=== PATIENT | female | born 1970 | race Caucasian/White ===

== ENCOUNTER 2019-11-30 15:19 | Emergency (ER) | payer OTHER ==
[~2019-11-30] VITALS: Ht 160 cm; Wt 60.3 kg
--- NOTE | ~2019-11-30 | EKG ---
[facility] [place] [address] ELECTROCARDIOGRAM REPORT Name: DANIELLE OCAMPO Room #: PRE [facility].#: [id number] Admission: Attend Phys: Discharge: Date of : 72 Report #: [id number] THIS REPORT FOR: cc: JANICE REMY Physician not on staff Rosaura Kaplan MD ~ THIS REPORT FOR: //name// [facility] ED Test Date: 2019-11-30 Test Time: 15:23:06 Pat Name: DANIELLE OCAMPO Department: Room: Gender: F [employer]: sergio : 1970 Requested By: Hao Pearl Order Number: [id number] MD: Measurements Intervals [place] Rate: 81 P: -77 WI: 107 QRS: 18 QRSD: 95 T: 41 QT: 368 QTc: 428 Interpretive Statements Sinus or ectopic atrial rhythm Short WI interval Compared to ECG 05/16/1999 11:59:26 Ectopic atrial rhythm now present Short WI interval now present Sinus rhythm no longer present [email or web address] By: 1523 1523 Epiphany EpiphanyMD /EPI
--- NOTE | ~2019-11-30 | EMS ---
[place] [address] EMS Patient Care Report Name: DANIELLE OCAMPO Room #: PRE [facility]..#: [id number] Admission: Attend Phys: Discharge: Date of : 72 Report #: [id number] THIS REPORT FOR: //name// Report Transmitted: 11/30/2019 14:52 EMS Care Summary [place], [place]/[facility] Incident [id number] @ 11/30/2019 14:40 Incident Location [address] [place] [address] Patient DANIELLE OCAMPO Female, 49 Years 1970 Patient Address [address] [place] [address] Patient History Hypothyroidism, Patient Allergies No known allergies, Patient Medications Levothyroxine, Chief Complaint chest pain Disposition Transported No Lights/[place] Dispatch Reason Chest Pain (Non-Traumatic) Transported To [facility] Narrative 49 y/o female with chest pain Upon arrival the pt was at the front door of the residence. She is awake conscious A&O x 4 with a GCS of 15. She has a patent airway, breathing is [address] [address] EMS Patient Care Report Name: DANIELLE OCAMPO Room #: [facility].#: [id number] Admission: Attend Phys: Discharge: Date of : 72 Report #: [id number] normal, and has a strong reg radial pulse. The pt appears to be in distress. She is c/o sudden onset of substernal chest pain while watching a movie she describes the pain as a substernal 71/0 pressure that radiates to stomach and back. The pt states she got up to walk around and chest pain got worse and called 911. The pt ambulated to the ambulance entered the side door, sat on the cot, secured to the cot, VS established. ECG SR, 12 lead SR with no st elevation noted on 12 lead, a 20 g lock was placed in LAC, D-101, pt was given ASA 324 mg chewable, nitro x 2 sublingual. Pain was reduced from a 7/10 crushing pain to a manageable 3/10 pressure. The pt VS were monitored and a second 12 lead was obtained during transport with no changes. The pt was taken to room 4 where she ambulated to her bed, report was given and EMS returned to service. Initial Vitals @15:04P: 77,R: 26,BP: 134/82,CO: 0,SpO2: 93, @14:58P: 75,R: 18,SpO2: 98, @14:53P: 141,R: 34,CO: 1,SpO2: 98, @15:09R: 22,SpO2: 96,[place] Suspected: false @15:00P: 75,R: 33,SpO2: 98, @15:05P: 78,R: 26,SpO2: 95, @14:50P: 90,R: 16,BP: 159/106,Pain: 7/10,GCS: 15,SpO2: 95,Revised Trauma: 12, @14:56P: 78,R: 33, @14:53P: 79,R: 13,SpO2: 100, @15:09P: 83,R: 37,SpO2: 97, @14:59P: 76,R: 21,BP: 150/90,CO: 2,SpO2: 99, @15:09P: 79,R: 16,BP: 125/80,Pain: 3/10,GCS: 15,Glucose: 101,SpO2: 95,Revised Trauma: 12, @15:06P: 77,R: 44,SpO2: 94, @14:55P: 76,R: 18,SpO2: 99,[place] Suspected: false Assessments @15:01MENTAL:Person Oriented,Time Oriented,Place Oriented,Event Oriented,SKIN:HEENT:Head/Face: No Abnormalities,Neck/Airway: No Abnormalities,LUNG SOUNDS:General: No Abnormalities,Left Upper: No Abnormalities,ABDOMEN:General: No Abnormalities,Left Upper: No Abnormalities,PELVIS//GI:No Abnormalities,EXTREMITIES:Capillary Refill: Right Upper: < 2 Sec,Capillary Refill: Left Upper: < 2 Sec,Left Arm: No Abnormalities,Right Arm: No Abnormalities,Left Leg: No Abnormalities,Right Leg: No Abnormalities,PULSE:Radial: 2+ Normal,NEURO:No Abnormalities,@15:10MENTAL:Person Oriented,Place Oriented,Time Oriented,Event Oriented,SKIN:HEENT:Head/Face: No Abnormalities,Neck/Airway: No Abnormalities,LUNG SOUNDS:General: No Abnormalities,ABDOMEN:General: No Abnormalities,PELVIS//GI:No Abnormalities,EXTREMITIES:Capillary Refill: Left Upper: < 2 Sec,Capillary Refill: Right Upper: < 2 Sec,Left Arm: No Abnormalities,Right Arm: No Abnormalities,Left Leg: No Abnormalities,Right Leg: No Abnormalities,PULSE:Radial: 2+ Normal,NEURO:No Abnormalities, [facility] [address] [place] [address] EMS Patient Care Report Name: DANIELLE OCAMPO Room #: [facility]..#: [id number] Admission: Attend Phys: Discharge: Date of : 72 Report #: [id number] Impression Chest Pain / Discomfort Procedures @14:47ALS AssessmentResponse: ImprovedSucceeded@15:0912-Lead ECGResponse: UnchangedSucceeded@14:5512-Lead ECGResponse: UnchangedSucceeded@14:58Aspirin - 324 Milligrams (mg) - OralResponse: Improved@14:58Nitrostat - 0.4 Milligrams (mg) - SublingualResponse: Improved@15:05Nitrostat - 0.4 Milligrams (mg) - SublingualResponse: Improved@14:533-Lead ECGResponse: UnchangedSucceeded Timeline 14:39,Call Received 14:39,Dispatch Notified 14:40,Dispatched 14:41,En Route 14:46,On Scene 14:47,At Patient 14:47,ALS Assessment,Response: ImprovedSucceeded, 14:50,BP: 159/106 M,PULSE: 90,RR: 16 R,SPO2: 95 Ox,ETCO2: ,BG: ,PAIN: 7,GCS: 15, 14:53,BP: / M,PULSE: 141,RR: 34 R,SPO2: 98 Ox,ETCO2: ,BG: ,PAIN: ,GCS: , 14:53,3-Lead ECG,Response: UnchangedSucceeded, 14:53,BP: / M,PULSE: 79,RR: 13 R,SPO2: 100 Ox,ETCO2: ,BG: ,PAIN: ,GCS: , 14:55,12-Lead ECG,Response: UnchangedSucceeded, 14:55,BP: / M,PULSE: 76,RR: 18 R,SPO2: 99 Ox,ETCO2: ,BG: ,PAIN: ,GCS: , 14:56,BP: / M,PULSE: 78,RR: 33 R,SPO2: Ox,ETCO2: ,BG: ,PAIN: ,GCS: , 14:58,Aspirin - 324 Milligrams (mg) - Oral,Response: Improved 14:58,BP: / M,PULSE: 75,RR: 18 R,SPO2: 98 Ox,ETCO2: ,BG: ,PAIN: ,GCS: , 14:58,Nitrostat - 0.4 Milligrams (mg) - Sublingual,Response: Improved 14:59,BP: 150/90 M,PULSE: 76,RR: 21 R,SPO2: 99 Ox,ETCO2: ,BG: ,PAIN: ,GCS: , 15:00,BP: / M,PULSE: 75,RR: 33 R,SPO2: 98 Ox,ETCO2: ,BG: ,PAIN: ,GCS: , 15:01,Depart Scene 15:04,BP: 134/82 M,PULSE: 77,RR: 26 R,SPO2: 93 Ox,ETCO2: ,BG: ,PAIN: ,GCS: , 15:05,Nitrostat - 0.4 Milligrams (mg) - Sublingual,Response: Improved 15:05,BP: / M,PULSE: 78,RR: 26 R,SPO2: 95 Ox,ETCO2: ,BG: ,PAIN: ,GCS: , 15:06,BP: / M,PULSE: 77,RR: 44 R,SPO2: 94 Ox,ETCO2: ,BG: ,PAIN: ,GCS: , 15:09,BP: / M,PULSE: 83,RR: 37 R,SPO2: 97 Ox,ETCO2: ,BG: ,PAIN: ,GCS: , 15:09,BP: 125/80 M,PULSE: 79,RR: 16 R,SPO2: 95 Ox,ETCO2: ,B,PAIN: 3,GCS: 15, 15:09,12-Lead ECG,Response: UnchangedSucceeded, 15:09,BP: / M,PULSE: ,RR: 22 R,SPO2: 96 Ox,ETCO2: ,BG: ,PAIN: ,GCS: , 15:13,At Destination 15:29,Call Closed Disclaimer [facility] [address] [place] [address] EMS Patient Care Report Name: DANIELLE OCAMPO Room #: PRE [facility].#: [id number] Admission: Attend Phys: Discharge: Date of : 72 Report #: [id number] [id number] Copyright 2020 [employer] This EMS Care Summary contains data elements from the applicable legal record (which may be displayed differently). It is designed to provide pertinent information for the following purposes: continuity of care, clinical quality, and state data reporting. The complete legal record is available to ED staff and administrators of the receiving hospital in [employer]'s Patient Tracker. All data is provided "as is."
[2019-11-30] MEDS ORDERED: ARMOUR THYROID30 M1 PO (15:37)
[2019-11-30] MEDS ORDERED: B12INJ IM (15:39)
[2019-11-30] MEDS ORDERED: IMITREX 25 MG T25 M1 PO (15:40)
[2019-11-30 15:50] LABS: HEMATOCRIT 43.1 % (37.0-47.0); HEMOGLOBIN 14.8 gm/dL (12.0-15.0); MCH 29.1 pg (26.0-34.0); MCHC 34.2 g/dL (28.0-37.0); MCV 85.1 fL (80.0-100.0); RBC 5.07 mil/uL (4.20-5.00); RDW 13.7 % (10.5-14.5); WBC 7.4 thou/uL (4.0-11.0)
[2019-11-30 15:59] LABS: ANION GAP 11 mmol/L (7-16); BUN 13 mg/dL (7-18); CALCIUM 8.8 mg/dL (8.5-10.1); CHLORIDE 107 mmol/L (98-107); CO2 24 mmol/L (21-32); CREATININE 0.8 mg/dL (0.6-1.0); GLUCOSE 112 mg/dL (74-106); POTASSIUM 3.4 mmol/L (3.5-5.1); SODIUM 142 mmol/L (136-145)
[2019-11-30 16:08] LABS: ALBUMIN 4.3 g/dL (3.4-5.0); SGOT 40 U/L (15-37); SGPT 25 U/L (30-65); TOTAL BILIRUBIN 1.1 mg/dL (0.2-1.0); TOTAL PROTEIN 6.9 g/dL (6.4-8.2); TROPONIN-I <0.06 ng/mL (<0.06)
[2019-11-30 20:19] VITALS: BP 108/75
== END 2019-11-30 20:29 | disposition home or self-care (01) ==
LOC: ER 15:19
PROVIDERS: Emergency Medicine
DX: R07.89 Other chest pain (principal); F17.210 Nicotine dependence, cigarettes, uncomplicated; Z79.899 Other long term (current) drug therapy; Z88.8 Allergy status to other drugs, medicaments and biological substances; Z88.5 Allergy status to narcotic agent